=== PATIENT | male | born 1970 | race African-American/Black ===

== ENCOUNTER 2018-02-07 12:52 | Emergency (ER) | payer OTHER ==
[2018-02-07 13:01] VITALS: TEMP 98.9
[2018-02-07] MEDS ORDERED: SODIUM CHLORIDE 0.9% 1,000 ML IV STA (13:17)
[2018-02-07] MEDS ORDERED: RX INFO: IV CONTRAST WAS GIVEN 1 EACH MISC MISCELLANE PRN ×2 (13:17→14:24)
[2018-02-07 13:34] LABS: Basophils % (A) 0 %; Eosinophils # (A) 0.2 k/uL (0-0.7); Eosinophils % (A) 2 %; HCT 45.7 % (39.0-53.0); HGB 15.1 gm/dL (13.0-17.5); Lymphocytes # (A) 1.6 k/uL (1.0-4.8); Lymphocytes % (A) 18 %; MCH 28.4 pg (25.0-35.0); MCV 86.2 fL (80.0-100.0); Mean Platelet Volume 7.4; Monocytes # (A) 0.3 k/uL (0-1.0); Monocytes % (A) 3 %; Neutrophils # (A) 6.7 k/uL (1.3-7.7); Neutrophils % (A) 76 %; Platelet Count 229 k/uL (150-450); RBC 5.29 m/uL (4.30-5.90); RDW 14.3 % (11.5-15.5); WBC 8.8 k/uL (3.8-10.6)
[2018-02-07 13:47] LABS: ALT 55 U/L (21-72); AST 35 U/L (17-59); Albumin 4.2 g/dL (3.5-5.0); Alkaline Phosphatase 73 U/L (38-126); Anion Gap 12 mmol/L; Blood Urea Nitrogen 9 mg/dL (9-20); Calcium 9.3 mg/dL (8.4-10.2); Carbon Dioxide 28 mmol/L (22-30); Chloride 103 mmol/L (98-107); Glucose 134 mg/dL (74-99); Lipase 28 U/L (23-300); Magnesium 1.8 mg/dL (1.6-2.3); Potassium 4.3 mmol/L (3.5-5.1); Sodium 143 mmol/L (137-145); Total Bilirubin 0.6 mg/dL (0.2-1.3); Total Protein 6.8 g/dL (6.3-8.2)
[2018-02-07 13:49] LABS: Partial Thromboplastin Time 28.5 sec (22.0-30.0); Prothrombin Time 9.8 sec (9.0-12.0)
--- NOTE | 2018-02-07 13:50 | ED ---
General Adult HPI - General Source: patient, RN notes reviewed, old records reviewed Mode of arrival: wheelchair Limitations: no limitations <Nicola Driscoll - Last Filed: 02/07/18 16:36> <Wilfredo Abreu - Last Filed: 02/07/18 18:19> - General Chief complaint: Chest Pain Stated complaint: chest pain/sore arm Time Seen by Provider: 02/07/18 13:09 - History of Present Illness Initial comments: This is a 47-year-old male the ER for evaluation. Patient is safe for evaluation of chest pain 2 days. Patient has history of high blood pressure, taking medication as prescribed but notes his blood pressure remained high. One episode chest pain last week which did resolve, patient had again severe chest pain today. This not feeling well, noted his blood pressure heart rate to be very elevated. (Nicola Driscoll) - Related Data Home Medications Medication Instructions Recorded Confirmed Albuterol Sulfate [Proair Hfa] 2 puff INHALATION RT-Q4H PRN 02/07/18 02/07/18 Lisinopril 30 mg PO DAILY 02/07/18 02/07/18 Allergies Allergy/AdvReac Type Severity Reaction Status Date / Time No Known Allergies Allergy Verified 02/07/18 13:40 Review of Systems ROS Other: All systems not noted in ROS Statement are negative. <Nicola Driscoll - Last Filed: 02/07/18 16:36> ROS Other: All systems not noted in ROS Statement are negative. <Wilfredo Abreu - Last Filed: 02/07/18 18:19> ROS Statement: Those systems with pertinent positive or pertinent negative responses have been documented in the HPI. Past Medical History Past Medical History: Hypertension History of Any Multi-Drug Resistant Organisms: None Reported Past Surgical History: No Surgical Hx Reported Past Psychological History: Anxiety Smoking Status: Current every day smoker Past Alcohol Use History: Occasional Past Drug Use History: None Reported <Nicola Driscoll - Last Filed: 02/07/18 16:36> General Exam Limitations: no limitations General appearance: alert, in no apparent distress, anxious Head exam: Present: atraumatic, normocephalic, normal inspection Eye exam: Present: normal appearance, PERRL, EOMI. Absent: scleral icterus, conjunctival injection, periorbital swelling ENT exam: Present: normal exam, mucous membranes moist Neck exam: Present: normal inspection. Absent: tenderness, meningismus, lymphadenopathy Respiratory exam: Present: normal lung sounds bilaterally. Absent: respiratory distress, wheezes, rales, rhonchi, stridor Cardiovascular Exam: Present: regular rate, normal rhythm, normal heart sounds. Absent: systolic murmur, diastolic murmur, rubs, gallop, clicks GI/Abdominal exam: Present: soft, normal bowel sounds. Absent: distended, tenderness, guarding, rebound, rigid Extremities exam: Present: normal inspection, full ROM, normal capillary refill. Absent: tenderness, pedal edema, joint swelling, calf tenderness Back exam: Present: normal inspection Neurological exam: Present: alert, oriented X3, CN II-XII intact Psychiatric exam: Present: normal affect, normal mood Skin exam: Present: warm, dry, intact, normal color. Absent: rash <Nicola Driscoll - Last Filed: 02/07/18 16:36> Course <Nicola Driscoll - Last Filed: 02/07/18 16:36> <Wilfredo Abreu - Last Filed: 02/07/18 18:19> Vital Signs 02/07/18 02/07/18 02/07/18 12:58 14:01 15:00 Temperature 98.9 F Pulse Rate 104 H 108 H 86 Respiratory 20 16 16 Rate Blood Pressure 177/103 150/75 133/93 O2 Sat by Pulse 97 99 98 Oximetry 02/07/18 16:00 Temperature Pulse Rate 77 Respiratory 16 Rate Blood Pressure 144/78 O2 Sat by Pulse 97 Oximetry - Reevaluation(s) Reevaluation #1: 02/07/18 16:36 Patient is medically clear for psychiatric evaluation (Nicola Driscoll) EKG Findings - EKG Comments: EKG Findings:: EKG shows sinus tachycardia rate of 104, DC 140, QRS 96, QTc 454 <Nicola Driscoll - Last Filed: 02/07/18 16:36> Medical Decision Making - Lab Data Result diagrams: 02/07/18 13:21 02/07/18 13:21 <Nicola Driscoll - Last Filed: 02/07/18 16:36> - Lab Data Result diagrams: 02/07/18 13:21 02/07/18 13:21 - Radiology Data Radiology results: report reviewed (Computed tomography scan of the chest is somewhat suboptimal without evidence of large central pulmonary embolism. No suspicious acute pulmonary process.) <Wilfredo Abreu - Last Filed: 02/07/18 18:19> - Medical Decision Making Patient was endorsed to me I Dr. Ramirez With anticipation of discharge unless mental health services felt otherwise. Patient was seen by mental health services, who will discharge and provided follow-up information. Patient states he has been anxious over the past couple of weeks. Patient states symptoms resolved with Ativan in the emergency department. Patient and family are updated of limitations of testing and emergency department, nevertheless patient does request discharge home. (Wilfredo Abreu) - Lab Data Lab Results 02/07/18 02/07/18 02/07/18 Range/Units 13:21 13:21 13:21 WBC 8.8 (3.8-10.6) k/uL RBC 5.29 (4.30-5.90) m/uL Hgb 15.1 (13.0-17.5) gm/dL Hct 45.7 (39.0-53.0) % MCV 86.2 (80.0-100.0) fL MCH 28.4 (25.0-35.0) pg MCHC 33.0 (31.0-37.0) g/dL RDW 14.3 (11.5-15.5) % Plt Count 229 (150-450) k/uL Neutrophils % 76 % Lymphocytes % 18 % Monocytes % 3 % Eosinophils % 2 % Basophils % 0 % Neutrophils # 6.7 (1.3-7.7) k/uL Lymphocytes # 1.6 (1.0-4.8) k/uL Monocytes # 0.3 (0-1.0) k/uL Eosinophils # 0.2 (0-0.7) k/uL Basophils # 0.0 (0-0.2) k/uL PT (9.0-12.0) sec INR (<1.2) APTT (22.0-30.0) sec D-Dimer (<0.60) mg/L FEU Sodium 143 (137-145) mmol/L Potassium 4.3 (3.5-5.1) mmol/L Chloride 103 (98-107) mmol/L Carbon Dioxide 28 (22-30) mmol/L Anion Gap 12 mmol/L BUN 9 (9-20) mg/dL Creatinine 0.96 (0.66-1.25) mg/dL Est GFR (CKD-EPI)AfAm >90 (>60 ml/min/1.73 sqM) Est GFR (CKD-EPI)NonAf >90 (>60 ml/min/1.73 sqM) Glucose 134 H (74-99) mg/dL Calcium 9.3 (8.4-10.2) mg/dL Magnesium 1.8 (1.6-2.3) mg/dL Total Bilirubin 0.6 (0.2-1.3) mg/dL AST 35 (17-59) U/L ALT 55 (21-72) U/L Alkaline Phosphatase 73 (38-126) U/L Total Creatine Kinase 212 H (55-170) U/L CK-MB (CK-2) 0.8 (0.0-2.4) ng/mL CK-MB (CK-2) Rel Index 0.4 Troponin I <0.012 (0.000-0.034) ng/mL Total Protein 6.8 (6.3-8.2) g/dL Albumin 4.2 (3.5-5.0) g/dL Lipase 28 (23-300) U/L Urine Opiates Screen (NotDetected) Ur Oxycodone Screen (NotDetected) Urine Methadone Screen (NotDetected) Ur Propoxyphene Screen (NotDetected) Ur Barbiturates Screen (NotDetected) U Tricyclic Antidepress (NotDetected) Ur Phencyclidine Scrn (NotDetected) Ur Amphetamines Screen (NotDetected) U Methamphetamines Scrn (NotDetected) U Benzodiazepines Scrn (NotDetected) Urine Cocaine Screen (NotDetected) U Marijuana (THC) Screen (NotDetected) 02/07/18 02/07/18 Range/Units 13:21 16:52 WBC (3.8-10.6) k/uL RBC (4.30-5.90) m/uL Hgb (13.0-17.5) gm/dL Hct (39.0-53.0) % MCV (80.0-100.0) fL MCH (25.0-35.0) pg MCHC (31.0-37.0) g/dL RDW (11.5-15.5) % Plt Count (150-450) k/uL Neutrophils % % Lymphocytes % % Monocytes % % Eosinophils % % Basophils % % Neutrophils # (1.3-7.7) k/uL Lymphocytes # (1.0-4.8) k/uL Monocytes # (0-1.0) k/uL Eosinophils # (0-0.7) k/uL Basophils # (0-0.2) k/uL PT 9.8 (9.0-12.0) sec INR 1.0 (<1.2) APTT 28.5 (22.0-30.0) sec D-Dimer 1.41 H (<0.60) mg/L FEU Sodium (137-145) mmol/L Potassium (3.5-5.1) mmol/L Chloride (98-107) mmol/L Carbon Dioxide (22-30) mmol/L Anion Gap mmol/L BUN (9-20) mg/dL Creatinine (0.66-1.25) mg/dL Est GFR (CKD-EPI)AfAm (>60 ml/min/1.73 sqM) Est GFR (CKD-EPI)NonAf (>60 ml/min/1.73 sqM) Glucose (74-99) mg/dL Calcium (8.4-10.2) mg/dL Magnesium (1.6-2.3) mg/dL Total Bilirubin (0.2-1.3) mg/dL AST (17-59) U/L ALT (21-72) U/L Alkaline Phosphatase (38-126) U/L Total Creatine Kinase (55-170) U/L CK-MB (CK-2) (0.0-2.4) ng/mL CK-MB (CK-2) Rel Index Troponin I (0.000-0.034) ng/mL Total Protein (6.3-8.2) g/dL Albumin (3.5-5.0) g/dL Lipase (23-300) U/L Urine Opiates Screen Not Detected (NotDetected) Ur Oxycodone Screen Not Detected (NotDetected) Urine Methadone Screen Not Detected (NotDetected) Ur Propoxyphene Screen Not Detected (NotDetected) Ur Barbiturates Screen Not Detected (NotDetected) U Tricyclic Antidepress Not Detected (NotDetected) Ur Phencyclidine Scrn Not Detected (NotDetected) Ur Amphetamines Screen Not Detected (NotDetected) U Methamphetamines Scrn Not Detected (NotDetected) U Benzodiazepines Scrn Not Detected (NotDetected) Urine Cocaine Screen Not Detected (NotDetected) U Marijuana (THC) Screen Detected H (NotDetected) Disposition <Nicola Driscoll - Last Filed: 02/07/18 16:36> Is patient prescribed a controlled substance at d/c from ED?: No Time of Disposition: 18:19 <Wilfredo Abreu - Last Filed: 02/07/18 18:19> Clinical Impression: Anxiety, Chest pain Disposition: HOME SELF-CARE Condition: Stable Instructions: Chest Pain (ED), Anxiety (ED) Additional Instructions: Please follow-up with primary care physician tomorrow. Please also follow-up with mental health services as directed. Referrals: Leyla Chan MD [Primary Care Provider] - 1-2 days
[2018-02-07 13:51] LABS: Creatine Kinase 212 U/L (55-170)
[2018-02-07 14:05] LABS: Creatine Kinase MB 0.8 ng/mL (0.0-2.4); Troponin I <0.012 ng/mL (0.000-0.034)
[2018-02-07 14:21] LABS: D-Dimer 1.41 mg/L FEU (<0.60)
--- NOTE | 2018-02-07 14:37 | CT ---
EXAMINATION TYPE: CT angio chest DATE OF EXAM: 02/07/2018 COMPARISON: NONE HISTORY: Chest pain CT DLP: 1295.4 mGycm. Automated Exposure Control for Dose Reduction was Utilized. CONTRAST: CTA scan of the thorax is performed with IV Contrast, patient injected with 100 mL of Isovue 370, pul monary embolism protocol. MIP Images are created on CT scanner and reviewed. FINDINGS: LUNGS: Some respiratory motion artifact degradation is seen making evaluation slightly suboptimal. Keyla ngs are grossly clear without pleural effusion or pneumothorax seen bilaterally. No suspicious parenc hymal nodule or mass is present bilaterally. Tracheobronchial tree is patent. MEDIASTINUM: There is suboptimal bolus with minimal contrast noted in the pulmonary arterial system a nd aorta. There is no large saddle central pulmonary embolism, smaller segmental and subsegmental PE cannot be evaluated on this study. Most dense contrast is pooling in SVC. There are no greater than 1 cm hilar or mediastinal lymph nodes. No cardiomegaly or pericardial effusion is seen. OTHER: Liver is markedly hypodense consistent with fatty infiltration IMPRESSION: 1. Suboptimal study without CT evidence for large central pulmonary embolism. Smaller peripheral PE c annot be excluded on this exam. No suspicious acute pulmonary process noted.
[2018-02-07 15:06] VITALS: RESP 16
[2018-02-07] MEDS ORDERED: LORazepam 2 MG/ML INJ IV STA (16:36)
[2018-02-07 16:47] VITALS: BP 144/78; PULSE 77
[2018-02-07 17:07] LABS: Amphetamine Screen,Urine Not Detected (NotDetected); Barbiturate Screen,Urine Not Detected (NotDetected); Benzodiazepines Screen,Urine Not Detected (NotDetected); Cocaine Screen,Urine Not Detected (NotDetected); Methadone Screen, Urine Not Detected (NotDetected); Opiate Screen,Urine Not Detected (NotDetected); Oxycodone Screen, Urine Not Detected (NotDetected); Phencyclidine Screen,Urine Not Detected (NotDetected); Tricyclic Antidepressant,Urine Not Detected (NotDetected); Urn Cannabinoid Scrn Detected (NotDetected)
== END 2018-02-07 18:39 | disposition home or self-care (01) ==
LOC: EC 12:52
DX: R07.9 Chest pain, unspecified (principal); F41.9 Anxiety disorder, unspecified; I10 Essential (primary) hypertension; F17.200 Nicotine dependence, unspecified, uncomplicated; Z79.899 Other long term (current) drug therapy
CPT/HCPCS: 99285; 96374; 96361 ×5; 36415; 93005; 85379; 80053; 82550; 82553; 83690; 83735; 84484; 85025; 85610; 85730; 80306; 71275; J2060; Q9967